=== PATIENT | male | born 1955 | race Caucasian/White ===

== ENCOUNTER → 2017-10-18 10:41 | Outpatient (CLI) | payer OTHER, SELFPAY ==
[2017-10-18 12:20] LABS: PSA,Total - Annual Screen 5.15 ng/mL (0.00-4.00)
== END ==
PROVIDERS: Visit Provider Family Medicine
DX: Z12.5 Encounter for screening for malignant neoplasm of prostate (principal)
CPT/HCPCS: 36415; 84153; G0103

== ENCOUNTER → 2018-03-06 16:43 | Outpatient (CLI) | payer OTHER, SELFPAY ==
[2018-03-06 18:06] LABS: PSA,Total- Diagnostic 5.61 ng/mL (0.0-4.0)
== END ==
PROVIDERS: Family Provider Family Medicine; PCP Family Medicine; Visit Provider Family Medicine
DX: R97.20 Elevated prostate specific antigen [PSA] (principal)
CPT/HCPCS: 36415; 84153

== ENCOUNTER → 2018-04-10 17:54 | Outpatient (CLI) | payer OTHER, SELFPAY ==
--- NOTE | 2018-04-10 | IMM_PTH ---
PATIENT: YOLI BARBA Jr. LOC: [facility] U#:[id number] AGE/SX: 70/M ROOM: RE04/10/[address]: Dr. Bradly Mancilla MD : 1955 BED: DIS: SPEC #: [id number] RECD: 04/12/18 14:17 STATUS: BURKE REQ #: [id number] AVELINA: 04/10/18 00:[address]: Bradly Mancilla DEPT: IMMUNOHISTOCHEMISTRY RECD BY: Meghana Segura ENTERED: 04/12/18 14:19 SP TYPE: IMMUNO OTHR DR: Dr. Too Moore MD Tissues: C - PROSTATE RIGHT D - PROSTATE LEFT F - PROSTATE LEFT Procedures: 34BE12 (add) P40 (add) 34BE12 (initial) PHYSICIAN & INSTITUTION [place] [id number] SPECIMEN INFORMATION: Tissue Source: C ? Right prostate base, D ? Left prostate apex, F ? Left prostate base Clinical Info: Elevated PSA Specimen Number: [id number] C, D, F CPT code: 57206, 97335 x5 METHODOLOGY: Deparaffinized sections of prefer/formalin-fixed tissue or PAP/DQ stained slides are incubated with monoclonal/polyclonal antibodies/oligonucleotide probes. Localization is made via biotin free immunoperoxidase method. Appropriate controls are performed and reacted as expected. Results on target cell population are indicated in the following table: RESULTS: ANTIBODY / CLONE RESULT Block C P40 (BC28) positive 34BE12 (34BE12) positive Block D P40 (BC28) positive 34BE12 (34BE12) positive Block F P40 (BC28) positive 34BE12 (34BE12) positive These tests were developed and their performance characteristics determined by [facility]. They may not have been cleared or approved by the U.S. Food and Drug Administration. The FDA has determined that such clearance or approval is not necessary. INTERPRETATION: C. Right prostate, base, core biopsy: Benign prostatic tissue. D. Left prostate, apex, core biopsy: Consistent with focal high-grade prostatic intraepithelial neoplasia. F. Left prostate, base, core biopsy: Consistent with focal high-grade prostatic intraepithelial neoplasia. AM:michele 04/13/18
--- NOTE | 2018-04-10 11:00 | PROSBIL_PTH ---
PATIENT: YOLI BARBA Jr. LOC: [facility] U#:[id number] AGE/SX: 70/M ROOM: RE04/10/[address]: Dr. Bradly Mancilla MD : 1955 BED: DIS: SPEC #: [id number] RECD: 04/10/18 17:42 STATUS: BURKE RELatonia #: [id number] AVELINA: 04/10/18 11:[address]: Bradly Mancilla DEPT: SURGICAL PATHOLOGY RECD BY: Stepan Fabian ENTERED: 04/11/18 11:59 SP TYPE: PROST BX RHIANNA DR: Dr. Too Moore MD Tissues: A - PROSTATE RIGHT B - PROSTATE RIGHT C - PROSTATE RIGHT D - PROSTATE LEFT E - PROSTATE LEFT F - PROSTATE LEFT Procedures: PROSTATE BX HEADER OPERATION: Prostate biopsy PRE-OP DIAGNOSIS: Elevated PSA TISSUE SUBMITTED: A - Right apex, B - Right mid, C - Right base, D - Left apex, E - Left mid, F - Left base MICROSCOPIC DIAGNOSIS A. Right prostate, apex, core biopsy: Focal glandular atrophy and minimal chronic inflammation. B. Right prostate, mid, core biopsy: Focal glandular atrophy and minimal chronic inflammation. C. Right prostate, base, core biopsy: Benign prostatic tissue. D. Left prostate, apex, core biopsy: Focal high-grade prostatic intraepithelial neoplasia (HGPIN). E. Left prostate, mid, core biopsy: Focal glandular atrophy and minimal chronic inflammation. F. Left prostate, base, core biopsy: Focal glandular atrophy. Mild chronic inflammation. Focal high-grade prostatic intraepithelial neoplasia (HGPIN). AM:michele 04/12/18 COMMENT C, D & F - Immunohistochemistry ([id number]) supports the above diagnosis. MICROSCOPIC DESCRIPTION Slides are reviewed. GROSS DESCRIPTION A - Received is one container designated prostate, right apex. The specimen consists of two elongated fragments of light berg-white soft tissue each measuring 2 cm in length and 0.1 cm in diameter. The specimen is totally submitted in one cassette. B - Received is one container designated prostate, right mid. The specimen consists of two elongated fragments of light berg-white soft tissue each measuring 2 cm in length and 0.1 cm in diameter. The specimen is totally submitted in one cassette. C - Received is one container designated prostate, right base. The specimen consists of two elongated fragments of light berg-white soft tissue each measuring 1 cm in length and 0.1 cm in diameter. The specimen is totally submitted in one cassette. D - Received is one container designated prostate, left apex. The specimen consists of two elongated fragments of light berg-white soft tissue each measuring 1 cm in length and 0.1 cm in diameter. The specimen is totally submitted in one cassette. E - Received is one container designated prostate, left mid. The specimen consists of two elongated fragments of light berg-white soft tissue each measuring 1.5 cm in length and 0.1 cm in diameter. The specimen is totally submitted in one cassette. F - Received is one container designated prostate, left base. The specimen consists of two elongated fragments of light berg-white soft tissue each measuring 1 cm in length and 0.1 cm in diameter. The specimen is totally submitted in one cassette. / AM:michele 04/11/18 TC:3 CPT: 61399 x6
== END ==
PROVIDERS: Family Provider Family Medicine; PCP Family Medicine; Visit Provider Urology
DX: R97.20 Elevated prostate specific antigen [PSA] (principal)
CPT/HCPCS: 88305; 88341; 88342; G0416

== ENCOUNTER → 2019-05-24 14:09 | Outpatient (CLI) | payer OTHER, SELFPAY ==
[2014-04-16 20:14] VITALS: BMI 23.7
[2019-05-24 16:24] LABS: PSA,Total- Diagnostic 5.63 ng/mL (0.0-4.0)
== END ==
PROVIDERS: Family Provider Family Medicine; PCP Family Medicine; Referring Provider Urology; Visit Provider Urology
DX: R97.20 Elevated prostate specific antigen [PSA] (principal)
CPT/HCPCS: 36415; 84153

== ENCOUNTER 2019-10-24 06:56 | Day surgery (SDC) | payer OTHER, SELFPAY ==
[2019-10-24 07:22] VITALS: BP 144/92; PULSE 71; RESP 16; TEMP 36.7; O2SAT 98; BMI 26.5
[2019-10-24] MEDS: Lactated Ringers 1,000 ML 100 ML IV (07:28)
--- NOTE | 2019-10-24 07:47 | HP.PCM_ITS ---
History of Present Illness Date of Admission: 10/24/19 The patient is a 64 year old M presents for screening colonoscopy. Patient's last colonoscopy was about 8 years ago states he did have about 5 polyps at that time was recommended to come back in 5 years. Patient denies any family history of colon cancer. Patient states he has bowel movements daily denies any blood. Denies any chronic abdominal pain/nausea/vomiting/reflux. Past Medical/Surgical History - Planned Operation Planned Operative Procedure/s: COLONOSCOPY Date of Operative Procedure: 10/24/19 Permit Signed: No S.O.S: No Is This Patient Having a Total Joint: No - Previous Hospitalizations/Surgeries HX Hospitalizations: No HX of Surgeries: COLONOSCOPY Any Problems With Anesthesia: No You/Your Family Experience Fever (Hyperthermia) With Anes: No Cholinesterase deficiency: No - Cardiovascular Hx Chest Pain within Last 2 months: No Hx of Irregular Heartbeat and/or Afib: No Hx Heart Attack: No Hx Congestive Heart Failure: No Hx Rheumatic Fever: No Hx Hypertension: No Hx Internal Defibrillator: No Hx Pacemaker: No Hx Cardiac Catheterization: No Hx Cardiac Surgery/Stents/Etc.: No Hx Stress Test: No HX Edema: No Hx Pain in Legs when Walking/Leg Cramps: Yes - Respiratory Chronic Cough: No HX of Shortness of Breath: No Hoarseness: No Hx Chronic Obstructive Pulmonary Disease (COPD): No Hx Asthma: No Hx Emphysema: No Hx Sleep Apnea: No Hx Oxygen Use at Home: No Hx Respiratory Tract Infection/Cold (presently): No Do You Snore Loudly (louder than talking or can be heard): Yes Do You Often Feel Tired/ Fatigued/ Sleepy Dring Daytime?: No Has Anyone Observed You Stop Breathing During Sleep?: No Result (for STOP score): Negative Hx Smoking: No Smoking Status: Never smoker - Gastrointestinal Hx Gastroesophageal Reflux: Yes Controlled With Meds: No Hx Gastrointestinal Disorders: No Hx Gastrointestinal Bleed: No Hx Ulcer: No Hx Hiatal Hernia: No Difficulty Chewing/Swallowing: No Recent Onset of Swallowing Problems: No Special diet followed at home: No Hx Unplanned Weight Loss of 20#: No HX Unplanned Weight Gain of 20#: No - Neurological Hx Seizures: No HX Syncope/Blackout Spells/Unconsciousness: No Hx CVA/Stroke: No Hx Transient Ischemic Attacks (TIA): No Hx Multiple Sclerosis: No Hx Parkinson's Disease: No Hx Head/Neck Injury: No Hx Headaches: No Hx Back Injury/Pain: No Recent Onset of Speech Difficulty: No Restless Legs: No Does patient have nerve stimulator: No - Blood Disorder Hx Leukemia: No Bleeding Tendencies: No Hx Deep Vein Thrombosis: No Hx High Cholesterol: No Blood Transmitted Disease: No Hx Hepatitis: No Hx Cirrhosis: No Hx Anemia: No Hx Blood Disorders: No - Genitourinary Hx Renal Disease: No - Musculoskeletal Hx Arthritis: No Hx Rheumatoid Arthritis: No Hx Gout: No Recent Onset of an Orthopedic Problem: No - Endocrine Hx Diabetes: No Thyroid Disease: No Hx Steroid Therapy: No - Psycho/Social Hx Substance Use: No Hx Alcohol Use: Yes - SOCIAL Hx Anxiety: No Hx Depression: No Mental Illness: No Hx Dementia: No - Miscellaneous Hx Cancer: No Recent Exposure to Contagious Disease: No Active MRSA: No Hx of C-Diff: No Any Loose Teeth: No Allergies No Known Allergies Allergy (Verified 10/22/19 10:44) - Discharge Is Pt Admitted From a Senior Living, or a Custodial: No Who Could Help: After D/C, Where Do you Plan to Go: Return Home - From the PAT History Number of Risk Factors: 2 - Physical Exam Vitals/I&O's: Vital Signs Temp Pulse Resp BP Pulse Ox 98.0 F 71 16 144/92 H 98 10/24/19 07:22 10/24/19 07:22 10/24/19 07:22 10/24/19 07:22 10/24/19 07:22 Oxygen Delivery Method Room Air Weight: 206 lb 9.17 oz Body Mass Index (BMI) 26.5 General: Alert, Oriented x3, Cooperative, No apparent distress HEENT: Atraumatic Lungs: Normal air movement Cardiovascular: Regular rate Abdomen: Soft, Non Tender, Non-Distended Extremities: No clubbing, No cyanosis, No edema Neurological: Cranial nerves II-XII grossly intact Psych/Mental Status: Normal Affect Current Medications Lactated Ringer's () 1,000 mls @ 100 mls/hr IV .Q10H LANEY Last Admin: 10/24/19 07:28 Dose: 100 mls/hr Documented by: Assessment/Plan 64-year-old male with history of colon polyps Surgery Risks - Colonoscopy I discussed with the patient the risks of the procedure: Yes Risks Include but are not Limited To: Risks include but are not limited to: Bleeding, perforation requiring further surgery, inability to complete colonoscopy requiring barium enema. Patient no further questions this time.
--- NOTE | 2019-10-24 08:00 | COLBX_PTH ---
PATIENT: YOLI BARBA Jr. LOC: [facility] U#:[id number] AGE/SX: 64/M ROOM: RE10/24/[address]: Dr. Salma Diaz MD : 1955 BED: DIS: 10/24/2019 SPEC #: [id number] RECD: 10/24/19 10:41 STATUS: BURKE RELatonia #: [id number] AVELINA: 10/24/19 08:[address]: Salma Diaz DEPT: SURGICAL PATHOLOGY RECD BY: Stepan Fabian ENTERED: 10/24/19 12:07 SP TYPE: COLON BX OTHR DR: Dr. Too Swann MD Tissues: A - Transverse colon B - Rectum, NOS Procedures: Surgery Specimen Level IV HEADER OPERATION: Colonoscopy - open access (MAC) PRE-OP DIAGNOSIS: Screening colonoscopy TISSUE SUBMITTED: A - Transverse colon biopsy, B - Rectal biopsy MICROSCOPIC DIAGNOSIS A. Transverse colon, biopsy: A fragment of colonic mucosa, no pathologic diagnosis. B. Rectal biopsy: Fragments of hyperplastic polyp. AM:michele 10/25/19 MICROSCOPIC DESCRIPTION Slides are reviewed. GROSS DESCRIPTION A - Received in fixative is one container labeled with the patient's name and designated transverse colon biopsy. The specimen consists of one irregular fragment of light berg soft tissue that measures 0.3 x 0.3 x 0.1 cm. The specimen is totally submitted in one cassette. B - Received in fixative is one container labeled with the patient's name and designated rectal biopsy. The specimen consists of multiple irregular fragments of light berg soft tissue that in aggregate measure 0.8 x 0.5 x 0.1 cm. The specimen is totally submitted in one cassette. / SJ:michele 10/24/19 TC:1 CPT: 34323 x2
[2019-10-24 08:42] VITALS: BP 126/82; BP 144/92; PULSE 72; RESP 16; TEMP 36.2; O2SAT 99
[2019-10-24 08:45] VITALS: BP 126/82; BP 144/92; PULSE 70; RESP 16; O2SAT 95
--- NOTE | 2019-10-24 08:46 | OP.COLON_ITS ---
Patient Name: Med Mcneill Procedure Date: 10/24/2019 7:41 AM Date of : 1955 Age: 64 Procedure: Colonoscopy Indications: High risk colon cancer surveillance: Personal history of colonic polyps Providers: Salma Diaz MD Referring MD: Too Swann Md Medicines: Monitored Anesthesia Care Patient Profile: This is a 64 year old male. Last Colonoscopy: 8 years ago. Complications: No immediate complications. Procedure: Pre-Anesthesia Assessment: - Prior to the procedure, a History and Physical was performed, and patient medications and allergies were reviewed. The patient's tolerance of previous anesthesia was also reviewed. The risks and benefits of the procedure and the sedation options and risks were discussed with the patient. All questions were answered, and informed consent was obtained. Prior Anticoagulants: The patient has taken no previous anticoagulant or antiplatelet agents. ASA Grade Assessment: I - A normal, healthy patient. After reviewing the risks and benefits, the patient was deemed in satisfactory condition to undergo the procedure. After I obtained informed consent, the scope was passed under direct vision. Throughout the procedure, the patient's blood pressure, pulse, and oxygen saturations were monitored continuously. The Colonoscope was introduced through the anus and advanced to the cecum, identified by the appendiceal orifice, ileocecal valve and palpation. The colonoscopy was somewhat difficult due to a tortuous colon. Successful completion of the procedure was aided by applying abdominal pressure. The patient tolerated the procedure well. The quality of the bowel preparation was good. Scope In: 8:00:53 AM Scope Withdrawal Time 0 hours 20 minutes 40 seconds Scope Out: 8:36:58 AM Total Procedure Duration Time 0 hours 36 minutes 5 seconds Findings: The perianal and digital rectal examinations were normal. A few small-mouthed diverticula were found in the sigmoid colon. Three sessile polyps were found in the rectum and transverse colon. The polyps were less than 5 mm in size. These polyps were removed with a cold biopsy forceps. Resection and retrieval were complete. The exam was otherwise without abnormality on direct and retroflexion views. Impression: - Diverticulosis in the sigmoid colon. - Three less than 5 mm polyps in the rectum and in the transverse colon, removed with a cold biopsy forceps. Resected and retrieved. - The examination was otherwise normal on direct and retroflexion views. Recommendation: - Await pathology results. - Repeat colonoscopy in 5 years for surveillance based on pathology results. - Continue present medications. Procedure Code(s): --- Professional --- 15606, PT, Colonoscopy, flexible; with biopsy, single or multiple Diagnosis Code(s): --- Professional --- Z86.010, Personal history of colonic polyps K62.1, Rectal polyp D12.3, Benign neoplasm of transverse colon (hepatic flexure or splenic flexure) K57.30, Diverticulosis of large intestine without perforation or abscess without bleeding CPT copyright 2017 [employer]. All rights reserved. The codes documented in this report are preliminary and upon shipping and receiving review may be revised to meet current compliance requirements. MD Salma Crawford MD 10/24/2019 8:46:15 AM This report has been signed electronically. Number of Addenda: 0 Note Initiated On: 10/24/2019 7:41 AM
--- NOTE | 2019-10-24 08:46 | OP.CCLET_ITS ---
10/24/2019 Too Swann Md Re : Colonoscopy procedure for Med Mcneill [place] This procedure was performed on Thursday, October 24, 2019. My impressions and recommendations are as follows: Impressions : - Diverticulosis in the sigmoid colon. - Three less than 5 mm polyps in the rectum and in the transverse colon, removed with a cold biopsy forceps. Resected and retrieved. - The examination was otherwise normal on direct and retroflexion views. Recommendations : - Await pathology results. - Repeat colonoscopy in 5 years for surveillance based on pathology results. - Continue present medications. My findings are described in the full procedure note, which is enclosed. If I can be of further assistance, please feel free to contact me at Doctor phone number(s): , Work: . Sincerely, MD Salma Crawford MD 10/24/2019 8:46:15 AM This report has been signed electronically.
[2019-10-24 08:50] VITALS: BP 140/87; BP 144/92; PULSE 68; RESP 16; O2SAT 96
[2019-10-24 08:57] VITALS: BP 141/87; BP 144/92; PULSE 67; RESP 16; TEMP 36.3; O2SAT 98
[2019-10-24 09:09] VITALS: BP 144/92
== END 2019-10-24 09:22 | disposition home or self-care (01) ==
LOC: EN 06:56 → AC 06:57
PROVIDERS: PCP Family Medicine; Referring Provider Family Medicine; Visit Provider Surgery
PROC: 0DJD8ZZ Inspection of Lower Intestinal Tract, Via Natural or Artificial Opening Endoscopic (ICD-10-PCS; CPT 45378; principal; 2019-10-24 07:55)
DX: Z12.11 Encounter for screening for malignant neoplasm of colon (principal); Z86.010 Personal history of colon polyps; K62.1 Rectal polyp; K57.30 Diverticulosis of large intestine without perforation or abscess without bleeding
CPT/HCPCS: 45380; 88305; J7120; J2405

== ENCOUNTER → 2020-03-24 09:46 | Outpatient (CLI) | payer OTHER, SELFPAY ==
[2020-03-24 13:27] LABS: Anion Gap 8 (5-15); BUN 25 mg/dL (7-18); Calcium,Total 8.8 mg/dL (8.5-10.1); Chloride 104 mmol/L (98-107); Cholesterol 158 mg/dL (200); Creatinine, Serum 0.93 mg/dL (0.70-1.30); EST Glomerular Filtration Rate 87 mL/min (>60); Est Glom Filt Rate - Afr Amer 105 mL/min (>60); Glucose 92 mg/dL (74-106); High Density Lipoprotein 35 mg/dL; Potassium 3.7 mmol/L (3.5-5.1); Sodium Level 138 mmol/L (136-145); Triglycerides 90 mg/dL; Very Low Density Lipoprotein 18 mg/dL (5-40)
== END ==
PROVIDERS: PCP Family Medicine; Referring Provider Family Medicine; Visit Provider Family Medicine
DX: Z13.1 Encounter for screening for diabetes mellitus (principal); Z13.220 Encounter for screening for lipoid disorders
CPT/HCPCS: 36415; 80048; 80061

== ENCOUNTER → 2020-08-26 09:58 | Outpatient (CLI) | payer OTHER, SELFPAY ==
[2020-08-26 11:44] LABS: PSA,Total- Diagnostic 8.11 ng/mL (0.0-4.0)
== END ==
PROVIDERS: PCP Family Medicine; Referring Provider Urology; Visit Provider Urology
DX: R97.20 Elevated prostate specific antigen [PSA] (principal)
CPT/HCPCS: 36415; 84153

== ENCOUNTER → 2020-12-15 10:41 | Outpatient (CLI) | payer OTHER, SELFPAY ==
[2020-12-15 11:32] LABS: PSA,Total- Diagnostic 6.03 ng/mL (0.0-4.0)
== END ==
PROVIDERS: PCP Family Medicine; Referring Provider Urology; Visit Provider Urology
DX: R97.20 Elevated prostate specific antigen [PSA] (principal)
CPT/HCPCS: 36415; 84153

== ENCOUNTER → 2021-04-14 09:22 | Outpatient (CLI) | payer OTHER, SELFPAY ==
[2021-04-14 10:09] LABS: Absolute Lymphocyte Count 1.58 X10^3/uL (0.83-4.51); Basophil# 0.03 X10^3/uL; Basophil% 0.6 % (0-1); Eosinophil# 0.09 X10^3/uL; Eosinophils% 1.7 % (0-5); Hematocrit 42.9 % (40-54); Hemoglobin 14.4 g/dL (13.0-16.5); Lymphocyte # 1.58 X10^3/ul (0.83-4.51); Lymphocyte % 30.7 % (19-41); Mean Corp Hgb Conc 33.6 g/dL (32-36); Mean Corpuscular Hgb 29.6 pg (27.0-32.0); Mean Corpuscular Volume 88.3 fL (80-94); Mean Platelet Vol. 9.1 fl (6.2-12.0); Monocyte# 0.46 X10^3/uL; Monocyte% 8.9 % (0-10); NRBC Flagged by Analyzer 0 % (0-5); Neutrophil # 2.97 X10^3/uL (2.7-7.7); Neutrophil % 57.7 % (47-70); Platelet Count 209 K/mm3 (150-450); RBC Distribution Width CV 14.1 % (11.6-14.6); Red Blood Count 4.86 M/mm3 (4.6-6.2); White Blood Count 5.2 K/mm3 (4.4-11.0)
[2021-04-14 10:34] LABS: ALB/GLOB Ratio 1.1 RATIO (0.9-2.4); AST(SGOT) 26 U/L (15-37); Alanine Aminotransfer ALT/SGPT 42 U/L (16-61); Albumin, Serum 3.7 g/dL (3.2-5.0); Alkaline Phosphatase 101 U/L (45-117); Anion Gap 5 (5-15); BUN 22 mg/dL (7-18); BUN/Creat Ratio 29.4 RATIO (10-20); Calcium,Total 8.6 mg/dL (8.5-10.1); Chloride 106 mmol/L (98-107); Cholesterol 162 mg/dL (200); Creatinine, Serum 0.75 mg/dL (0.70-1.30); EST Glomerular Filtration Rate 110 mL/min (>60); Est Glom Filt Rate - Afr Amer 134 mL/min (>60); Globulin 3.3 g/dL (2.2-4.2); Glucose 94 mg/dL (74-106); High Density Lipoprotein 35 mg/dL; Potassium 3.8 mmol/L (3.5-5.1); Sodium Level 138 mmol/L (136-145); Triglycerides 152 mg/dL; Very Low Density Lipoprotein 30 mg/dL (5-40)
== END ==
PROVIDERS: PCP Family Medicine; Referring Provider Family Medicine; Visit Provider Family Medicine
DX: E78.00 Pure hypercholesterolemia, unspecified (principal)
CPT/HCPCS: 36415; 80053; 80061; 85025

== ENCOUNTER → 2021-06-15 15:50 | Outpatient (CLI) | payer OTHER, SELFPAY ==
--- NOTE | 2021-06-15 13:15 | LES_PTH ---
PATIENT: YOLI BARBA Jr. LOC: [facility] U#:[id number] AGE/SX: 70/M ROOM: RE06/15/[address]: Dr. Salma Diaz MD : 1955 BED: DIS: SPEC #: [id number] RECD: 06/15/21 15:30 STATUS: BURKE DESMOND #: [id number] AVELINA: 06/15/21 13:[address]: Salma Diaz DEPT: SURGICAL PATHOLOGY RECD BY: Claire Rowan ENTERED: 06/16/21 08:18 SP TYPE: Lesion OTHR DR: Dr. Too Swann MD Tissues: A - Skin of back, NOS B - Skin of chest C - Skin of arm Procedures: Surgery Specimen Level III Surgery Specimen Level IV HEADER OPERATION: Excision left chest, left forearm and back lesions PRE-OP DIAGNOSIS: Back lipoma, other skin lesions TISSUE SUBMITTED: A - Subcutaneous mass left back, B - Skin lesion anterior chest, long stitch - lateral, short stitch - superior, C - Skin lesion left forearm, long stitch - lateral, short stitch - superior MICROSCOPIC DIAGNOSIS A. Subcutaneous mass left back, excisional biopsy: Mature adipose tissue consistent with lipoma. B. 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 Mild actinic keratosis. Lichenoid dermal chronic inflammation adjacent to the tumor. C. Skin lesion left forearm, excisional biopsy: Basal cell carcinoma, completely excised. Actinic keratosis and solar elastosis. SJ:michele 06/17/2021 MICROSCOPIC DESCRIPTION Slides are reviewed. GROSS DESCRIPTION A - Received in fixative is one container labeled with the patient's name and designated subcutaneous mass left back. The specimen consists of an irregular, partially disrupted yellow adipose tissue mass measuring 8 x 8 x 3 cm. A small piece of adipose tissue is also noted measuring 2.5 x 1.5 x 1 cm. Sections reveal yellow adipose cut surfaces without area of hemorrhage, necrosis or cystic degeneration. Bag Sewer sections are submitted in four cassettes. B - Received in fixative is one container labeled with the patient's name and designated skin lesion anterior chest. The specimen consists of a berg-white skin ellipse measuring 1 x 0.3 cm and up to 0.2 cm in thickness. The specimen is oriented by two sutures, long stitch - lateral, short stitch - superior. The specimen is inked as follows: superior margin - blue, inferior margin - green, lateral tip - yellow and medial tip - black. The specimen is serially sectioned and submitted entirely in one cassette. C - Received in fixative is one container labeled with the patient's name and designated skin lesion left forearm. The specimen consists of a berg-white skin ellipse measuring 1.5 x 0.7 cm and up to 0.2 cm in thickness. The specimen is oriented as follows: long stitch - lateral, short stitch - superior. The specimen is inked as follows: superior tip - blue, inferior tip - green, lateral margin - black and medial margin - yellow. The specimen is serially sectioned and submitted entirely in one cassette. / SJ:rg 06/16/21 TC:0 CPT: 12089 x2, 94891
== END ==
PROVIDERS: PCP Family Medicine; Referring Provider Surgery; Visit Provider Surgery
DX: L98.9 Disorder of the skin and subcutaneous tissue, unspecified (principal); D17.79 Benign lipomatous neoplasm of other sites
CPT/HCPCS: 88304; 88305

== ENCOUNTER 2021-06-24 05:56 | Day surgery (SDC) | payer OTHER, SELFPAY ==
[2021-06-24 06:17] VITALS: BP 145/65; PULSE 79; RESP 16; TEMP 36.6; O2SAT 99; BMI 26.6
[2021-06-24] MEDS: Lactated Ringers 1,000 ML 15 ML IV (06:25)
--- NOTE | 2021-06-24 08:00 | TISS_PTH ---
PATIENT: YOLI BARBA Jr. LOC: [facility] [place] U[place][id number] AGE/SX: 66/M ROOM: RE06/24/[address]: Dr. Bradly Mancilla MD : 1955 BED: DIS: 06/24/2021 SPEC #: [id number] RECD: 06/24/21 10:12 STATUS: BURKE [place] #: [id number] AVELINA: 06/24/21 08:[address]: Bradly Mancilla DEPT: SURGICAL PATHOLOGY RECD BY: Almaz Mc ENTERED: 06/24/21 13:31 SP TYPE: Tissue Bx RHIANNA DR: Dr. Too Swann MD Tissues: TISSUE SURGICALLY REMOVED Procedures: Surgery Specimen Level IV HEADER OPERATION: Excision penile condyloma PRE-OP DIAGNOSIS: Condyloma latum TISSUE SUBMITTED: Penile condyloma MICROSCOPIC DIAGNOSIS Penile lesion, excisional biopsy: Consistent with seborrheic keratosis. SJ:michele 06/25/2021 MICROSCOPIC DESCRIPTION Slides are reviewed. GROSS DESCRIPTION Received in fixative is one container labeled with the patient's name and designated penile condyloma. The specimen consists of a piece of berg-brown skin measuring 1.7 x 0.7 cm and up to 0.3 cm in thickness. The specimen is inked, serially sectioned and submitted entirely in one cassette. / CYLDE:michele 06/24/21 TC:1 CPT: 21329
[2021-06-24] MEDS: Cefazolin 2 GM in 0.9% Normal Saline 100 ML IV (08:20)
--- NOTE | 2021-06-24 08:21 | PCM.HP.STD ---
HPI - General HPI Narrative YOLI BARBA, is a 66 M who presents for excision of penile condyloma. PFSH Medical History Alcohol use Back pain Heartburn Non-smoker Urinary retention Home Medications tamsulosin 0.4 mg PO QHS 10/22/19 [History Last Taken Unknown] Allergy/AdvReac Type Severity Reaction Status Date / Time No Known Allergies Allergy Verified 06/24/21 06:16 Family History Mother Heart disease Hypertension Breast cancer Father CHF (congestive heart failure) Sister Hypertension Parkinsons disease Surgical History History of colonoscopy (~10/2019) No pertinent past surgical history Social History Smoking Status: Never smoker Vital Signs Vital Signs Vital Signs: 06/24/21 06:17 Temperature 98 F Temperature Source Temporal Pulse Rate 79 Respiratory Rate 16 Respiratory Pattern Normal Blood Pressure 145/65 H Blood Pressure Mean 91 Blood Pressure Source Monitor Blood Pressure Position Semi-Fowlers Blood Pressure Location Right Arm Pulse Ox 99 Oxygen Delivery Method Room Air Weight Weight: 94 kg Body Mass Index (BMI) 26.6
--- NOTE | 2021-06-24 08:21 | PCM.DC ---
Discharge Instructions Diet Discharge Diet: No restrictions Activity Discharge Activity: Return to Normal Activity and May Not Drive (while taking narcotic pain medications.) Dressing / Incision Call your doctor if you observe: Fever of 101 or Higher Follow Up Care Please Follow Up With: Bradly Mancilla MD When: Call [phone] for an appointment Test Results: Test results from this visit will be discussed in further detail at your follow-up appointment, if applicable. Discharge Plan Admission Primary Reason for Your Visit: excision of penile condyloma Attending Provider: Bradly Mancilla Primary Care Provider: Too Swann Discharge Orders/Prescriptions Prescriptions: No Action tamsulosin 0.4 MG capsule 0.4 mg PO QHS RF: 0 Referrals / Follow Up: Bradly Mancilla MD [STAFF PHYSICIAN] - Too Swann MD [Primary Care Provider] - Disposition Disposition (needs filled in before D/C Order can be placed): Home, Self Care
[2021-06-24] MEDS: Lidocaine 1% (30 ml sdv) 30 ML Vial (08:30)
--- NOTE | 2021-06-24 08:41 | PCM.OPRPT ---
Report of Operation Date of Procedure: 06/24/21 Pre-Operative Diagnosis: Penile condyloma l Post-Operative Diagnosis: Same Surgery/Procedure Performed:: Surgical excision of penile condyloma Description of Surgical Findings:: 66-year-old male had a condyloma the base of the penis he wishes to have it removed he is concerned about it and the size of it is gotten larger so because of this organ to proceed with excision of a penile condyloma. It is possible this also could be a fleshy wart, Patient was taken back to the operating room after smooth induction of a MAC local he was placed upon the table the area around the common dome of the base of the penis this was the 3 o'clock position on the penis base was shaved prepped and draped in usual sterile fashion I incised infiltrated below the condyloma with lidocaine 1% without epi I then made an elliptical an elliptical incision around the condyloma and excised this from underneath and then had plenty of loose tissue and then brought it together for a nice straight closure with 2 layers 1 subcutaneous layer and then interrupted stitches on the top with chromic stitches 3-0 chromic after the closure was done look nice and clean and intact flaps and dressings were replaced patient anesthetic was versed taken back to PACU good condition. Surgeon: aster Type of Anesthesia: MAC
[2021-06-24 08:50] VITALS: BP 111/71; BP 145/65; PULSE 65; RESP 18; TEMP 36; O2SAT 96
[2021-06-24 08:55] VITALS: BP 111/71; BP 145/65; PULSE 64; RESP 16; O2SAT 96
[2021-06-24 09:00] VITALS: BP 113/73; BP 145/65; PULSE 60; RESP 16; O2SAT 95
[2021-06-24 09:07] VITALS: BP 128/81; BP 145/65; PULSE 62; RESP 16; TEMP 35.7; O2SAT 95
[2021-06-24 09:52] VITALS: BP 145/65
== END 2021-06-24 09:53 | disposition home or self-care (01) ==
LOC: SDC 05:58 → AC 05:58
PROVIDERS: PCP Family Medicine; Referring Provider Urology; Visit Provider Urology
PROC: (CPT 54060; principal; 2021-06-24 07:45)
DX: A63.0 Anogenital (venereal) warts (principal); R33.9 Retention of urine, unspecified; Z79.899 Other long term (current) drug therapy
CPT/HCPCS: 00920; 54060; 88305; J7120

== ENCOUNTER → 2021-07-02 15:14 | Outpatient (CLI) | payer OTHER, SELFPAY ==
--- NOTE | 2021-07-02 | IMM_PTH ---
PATIENT: YOLI BARBA Jr. LOC: [facility] U#:[id number] AGE/SX: 70/M ROOM: RE07/02/[address]: Dr. Salma Diaz MD : 1955 BED: DIS: SPEC #: [id number] RECD: 07/06/21 14:07 STATUS: BURKE RELatonia #: [id number] AVELINA: 07/02/21 00:[address]: Salma Diaz DEPT: IMMUNOHISTOCHEMISTRY RECD BY: Meghana Segura ENTERED: 07/06/21 14:11 SP TYPE: IMMUNO OTHR DR: Dr. Too Swann MD Tissues: Skin of chest Procedures: MART1 (add) S100 (initial) PHYSICIAN & INSTITUTION [place] [id number] SPECIMEN INFORMATION: Tissue Source: Skin lesion of chest Clinical Info: Mole on chest Specimen Number: [id number] CPT code: 43117, 84656 METHODOLOGY: Deparaffinized sections of prefer/formalin-fixed tissue or PAP/DQ stained slides are incubated with monoclonal/polyclonal antibodies/oligonucleotide probes. Localization is made via biotin free immunoperoxidase method. Appropriate controls are performed and reacted as expected. Results on target cell population are indicated in the following table: RESULTS: ANTIBODY / CLONE RESULT S-100 (4C4.9) positive MART-1 (A-103) positive These tests were developed and their performance characteristics determined by [facility]. They may not have been cleared or approved by the U.S. Food and Drug Administration. The FDA has determined that such clearance or approval is not necessary. The above immunohistochemical/dualISH markers are ordered and reviewed by the Pathologist. INTERPRETATION: Skin lesion of chest, excisional biopsy: Compound nevus. CLYDE:michele 07/07/2021 Case has been reviewed in consultation with Dr. Payne who concurs with the above diagnosis. IDC:AM
--- NOTE | 2021-07-02 13:15 | LES_PTH ---
PATIENT: YOLI BARBA Jr. LOC: [facility] U#:[id number] AGE/SX: 70/M ROOM: RE07/02/[address]: Dr. Salma Diaz MD : 1955 BED: DIS: SPEC #: [id number] RECD: 07/02/21 14:43 STATUS: BURKE DESMOND #: [id number] AVELINA: 07/02/21 13:[address]: Salma Diaz DEPT: SURGICAL PATHOLOGY RECD BY: Claire Rowan ENTERED: 07/03/21 10:53 SP TYPE: Lesion OTHR DR: Dr. Too Swann MD Tissues: Skin of chest Procedures: Surgery Specimen Level IV HEADER OPERATION: Excision skin lesion on chest PRE-OP DIAGNOSIS: Mole on chest TISSUE SUBMITTED: Skin lesion chest, long suture ? lateral, short suture ? superior MICROSCOPIC DIAGNOSIS Skin lesion chest, excisional biopsy: A minute compound nevus, completely excised (0.2 cm in greatest dimension). Focal seborrheic keratosis. Dermal fibrosis consistent with scar. Actinic keratosis. Negative for malignancy. SJ:michele 07/06/2021 COMMENT Immunohistochemistry ([id number]) supports the above diagnosis. Please make reference to previous specimen ([id number]) skin lesion anterior chest, excisional biopsy with diagnosis of ?squamous cell carcinoma with focal area suspicious for minimally invasive squamous cell carcinoma, completely excised.? Case has been reviewed in consultation with Dr. Payne who concurs with the above diagnosis. IDC:AM MICROSCOPIC DESCRIPTION Slides are reviewed. GROSS DESCRIPTION Received in fixative is one container labeled with the patient's name and designated skin lesion anterior chest. The specimen consists of an ellipse of berg, excised skin. The specimen is oriented and measures 2.2 x 1.2 x 0.4 cm. The specimen is differentially inked as follows: superior ? black, inferior ? blue, medial ? red and lateral ? yellow. The specimen is serially sectioned and totally submitted in one cassette. / AM:michele 07/03/21 TC:1 CPT: 03231
== END ==
PROVIDERS: PCP Family Medicine; Referring Provider Surgery; Visit Provider Surgery
DX: L98.9 Disorder of the skin and subcutaneous tissue, unspecified (principal)
CPT/HCPCS: 88305; 88341; 88342

== ENCOUNTER → 2021-12-30 | Outpatient (CLI) | payer MEDICARE, SELFPAY | END | disposition home or self-care (01) | PROVIDERS: PCP Family Medicine; Visit Provider Urology | DX: R97.20 Elevated prostate specific antigen [PSA] (principal) | CPT/HCPCS: 36415; 84153 ==

== ENCOUNTER 2022-07-29 05:57 | Day surgery (SDC) | payer MEDICARE, OTHER, SELFPAY ==
--- NOTE | 2022-07-23 08:27 | EKG12_ITS ---
Test Reason : PRE OP Blood Pressure : / mmHG Vent. Rate : 059 BPM Atrial Rate : 059 BPM P-R Int : 218 ms QRS Dur : 114 ms QT Int : 442 ms P-R-T Axes : 068 069 059 degrees QTc Int : 437 ms Sinus bradycardia with 1st degree A-V block Otherwise normal ECG Confirmed by MADINA QUEZADA, TED ([id number]), scientific editor REGGIE MOSER ([id number]) on 07/27/2022 10:57:20 AM Referred By: Mihir Gregory Confirmed By:REY PAINTER MD
[2022-07-29] VITALS (7 sets, daily range): BP systolic 145–170; BP diastolic 77–95; PULSE 56–98; RESP 16; TEMP 36.2–36.9; O2SAT 92–99; BMI 25.7
[2022-07-29] MEDS: Lactated Ringers 1,000 ML 15 ML IV ×2 (06:49→08:13)
--- NOTE | 2022-07-29 06:52 | HP.PCM_ITS ---
History and Physical Date of Admission: 07/29/22 Medical History? Alcohol use Back pain Heartburn Non-smoker Urinary retention Surgical History? History of colonoscopy (~10/2019) Hx of basal cell carcinoma excision Hx of squamous cell carcinoma excision No pertinent past surgical history Family History? Mother Heart disease Hypertension Breast cancerFather CHF (congestive heart failure)Sister Hypertension Parkinsons disease Social History? Smoking Status:? Never smoker HPI HPI HPI: Patient is a 67-year-old male here with left inguinal hernia.? He is here for scheduling of his surgery.? He reports that his hernia has gotten worse since seeing me last.? He reports that sometimes he hears bowel sounds coming from his hernia.? He says it does spontaneously reduce with lying down. ROS General General: No weight change, appetite, fatigue, colon cancer, breast cancer or weakness HEENT HEENT: No difficulty swallowing, eye injury, eye surgery, swollen glands or hoarseness Endo Endocrine: No thyroid disease, diabetes mellitus, thyroid cancer, Hair loss, heat intolerance or cold intolerance Musc Musculoskeletal: No back problems, arthritis, rheumatoid arthritis, gout or joint pain Cardio Cardiovascular: No murmur, pacemaker, heart disease, atrial fibrillation, high blood pressure, heart attack, heart stent, palpitations, shortness of breat with exertion or chest pain Psych Psychiatric: No depression, anxiety or hearing voices Resp Respiratory: No shortness of breath, No sleep apnea, No cough, No COPD, No asthma, No emphysema and No wheezing Gastro Gastrointestinal: No abdominal pain, No nausea or vomiting, No diarrhea, No constipation, No blood in stool, No acid reflux, No hemorrhoids, No ulcers, No gallbladder problem and No black,tarry stools Markus Hematologic: No blood thinners, No blood disorders, No bleeding, No anemia and No blood clots Neuro Neurologic: No weakness Exam Const General: cooperative Orientation: alert and oriented x3 HENMT Head: normal to inspection Neck Neck: normal visual inspection and full ROM Chest Chest palpation & inspection: normal inspection of the chest Resp Effort & Inspection: normal respiratory effort Auscultation: clear to auscultation bilaterally Cardio Rate: regular rate Rhythm: regular rhythm GI Inspection: non-distended Palpation: soft, hernia indirect inguinal on the left and nontender Skin General: no rashes or lesions noted Neuro General: patient alert and patient oriented x3 Extrem General: full ROM Psych Appearance: grossly normal Mental Status: mental status grossly normal Assessment and Plan Assessment and Plan (1) Left inguinal hernia: ?Status:?Acute ?Plan: Patient has a left inguinal hernia likely containing bowel.? I once again discussed robotic assisted laparoscopic approach with him.? I discussed fixing the contralateral side if there is a hernia present he would like this repaired if there is a hernia there.? I discussed that hernia repair in detail along with the risk such as bleeding, infection, injury to other organs like the bowel, bladder, spermatic cord.? Patient understands the risks and is willing to proceed. Mihir Gregory MD Pager: [facility] [address] [place] [address], [address] [place] [address] Office: I have seen and examined the patient and reviewed the H&P. There are no changes
[2022-07-29] MEDS: Cefazolin 2 GM in 0.9% Normal Saline 100 ML IV (07:25)
[2022-07-29] MEDS: Bupivacaine Mpf 0.5% 30 ML VIAL (08:45)
--- NOTE | 2022-07-29 09:14 | PCM.OPRPT ---
Report of Operation Date of Procedure: 07/29/22 Pre-Operative Diagnosis: Left inguinal hernia Post-Operative Diagnosis: Same Surgery/Procedure Performed:: Robotic assisted laparoscopic left inguinal hernia repair with mesh Description of Procedure: Patient was brought back to the operating room and general anesthesia was induced. The abdomen was prepped and draped in usual sterile fashion. An incision was made superior the umbilicus and deepened to the fascia which was grasped and elevated and a Veress needle was placed into the abdomen and a drop test was performed. The abdomen was then insufflated 15 mmHg. Next the Veress needle was removed and a port was placed. The abdomen was inspected for injuries from entry and there were none. Next the patient was placed in Trendelenburg position and the groins were inspected. The patient had a left indirect inguinal hernia but nothing on the right. Next and there direct visualization an 8 mm port was placed in the right and left abdominal sidewall and the robot was docked. The peritoneum was incised in the left lower quadrant and dissected inferiorly until the hernia sac was encountered. The hernia was able to be reduced as well as a small lipoma. There was an area of peritoneum tightly adherent to the epigastric vessels and so this was left on the epigastric Bilivist vessels and the peritoneum was incised around it. After total dissection a 12 x 15 cm ProGrip mesh was placed and unfolded in the left groin completely covering the hernia defect. The peritoneum was reapproximated using a running 3-0V lock suture completely covering the mesh. The small defect that was made was also closed using a running V-Loc suture. The peritoneum completely cover the mesh at the end of the procedure with no defects. Next the robot was undocked and the ports were removed and the air was allowed to desufflate from the abdomen. The skin was injected with local anesthetic and closed with interrupted 4-0 Monocryl suture. Steri-Strips and bandages were applied. Scrotum was checked at the end the case and contain both testicles. Patient was taken to PACU in stable condition. Grafts/Implants Used: ProGrip mesh in the left groin Admit VTE Documentation VTE Mechan Device Prophylaxis: SCD's
--- NOTE | 2022-07-29 09:17 | DCINST_ITS ---
Discharge Instructions Procedure Hernia Diet Discharge Diet: Light diet - advance as tolerated Activity Discharge Activity: May Not Drive (for 2-3 days or while taking narcotic pain meds.) and May Shower (with the bandage in place 1-2 days after surgery.) Lifting Restrictions: 20 pounds for 4 weeks. Additional Activity Instructions:: Climbing stairs is fine, walking is encouraged. Sitting in bed may be uncomfortable. Sitting up using your lateral muscles (sitting up sideways) is usually more comfortable. Do not drive, work heavy equipment of sign legal documents for 24 hours. If your hernia repair was an inguinal repair, you may have scrotal swelling, an ice pack and/or athletic support can provide more comfort. Pain medications may cause nausea, you should typically eat light foods as you take your pain medications. Pain medications may also cause constipation. If you have difficulty with this, discuss with your doctor. Dressing / Incision Call your doctor if your incision/area has: Continuous Slow Oozing, Sudden Increased Bleeding, Increased Pain/ Swelling, Increased Redness and Foul Smelling Discharge Call your doctor if you observe: Fever of 101 or Higher Suture Line Care: Avoid Pulling/Pushing and Avoid Pinching/Bending Remove Dressing in: 2 days (Remove clear bandages in 2 days, remove Steri-Strips in 7 to 10 days.) Cleanse incision/area with: Soap & Water Follow Up Care Please Follow Up With: Mihir Gregory MD When: Please call to schedule 2 week follow up appointment. [phone] Test Results: Test results from this visit will be discussed in further detail at your follow- up appointment, if applicable. Discharge Plan Admission Attending Provider: Mihir Gregory Primary Care Provider: Joann Curran Discharge Orders/Prescriptions Prescriptions: New oxycodone 5 mg tablet 5 - 10 mg PO Q6H PRN (Reason: pain) 5 Days Qty: 15 0RF No Action tamsulosin 0.4 MG capsule 0.4 mg PO QHS Referrals / Follow Up: Joann Curran DO [Primary Care Provider] - Disposition Disposition (needs filled in before D/C Order can be placed): Home, Self Care
[2022-07-29] MEDS: Tamsulosin HCl 0.4 MG Capsule 0.8 MG PO (14:48)
== END 2022-07-29 15:11 | disposition home or self-care (01) ==
LOC: SDC 05:57 → AC 05:57
PROVIDERS: PCP Family Medicine; Referring Provider Surgery; Visit Provider Surgery
PROC: 0YQ64ZZ Repair Left Inguinal Region, Percutaneous Endoscopic Approach (ICD-10-PCS; CPT 49650; principal; 2022-07-29 07:10)
DX: K40.90 Unilateral inguinal hernia, without obstruction or gangrene, not specified as recurrent (principal); D17.1 Benign lipomatous neoplasm of skin and subcutaneous tissue of trunk; R33.9 Retention of urine, unspecified; N40.0 Benign prostatic hyperplasia without lower urinary tract symptoms; Z79.899 Other long term (current) drug therapy
CPT/HCPCS: 49650; S2900; 00840; 51702; 93005; 99283; J7120; J2405

== ENCOUNTER 2022-07-29 17:31 | Emergency (ER) | payer MEDICARE, OTHER, SELFPAY ==
[2022-07-29 17:32] VITALS: BP 176/99; PULSE 100; RESP 15; TEMP 36.6; O2SAT 99; BMI 25.0
--- NOTE | 2022-07-29 18:52 | EDS_ITS ---
HPI History of Present Illness Chief Complaint: Complaint Detail of Chief Complaint: Urinary retention post hernia repair surgery today. Informant: patient Pain Onset: Today Context: Gradual Onset Timing: Continuous Current Severity: Mild Maximum Severity: Mild Narrative Narrative: Six 7-year-old man no prior history of urinary retention. Today laparoscopic hernia repair surgery done by Dr. Mihir granados. After the surgery was unable to urinate the straight cath. He still been unable to urinate and returns with suprapubic discomfort. Prior to the surgery he was having no urinary symptoms other than frequency. But has had no recent dysuria or hematuria. Prior similar symptoms: Yes Recent Illness/Hospitalization: No PFSH PFSH Medical History Alcohol use Back pain Heartburn Leg cramps Non-smoker Prostate disease Urinary retention Home Medications tamsulosin 0.4 mg capsule 0.4 mg PO QHS 10/22/19 [History Last Taken Unknown] oxycodone 5 mg tablet 5 - 10 mg PO Q6H PRN pain 5 days #15 tabs 07/29/22 [Rx Last Taken Unknown] Allergy/AdvReac Type Severity Reaction Status Date / Time No Known Allergies Allergy Verified 07/29/22 06:18 Family History Mother Heart disease Hypertension Breast cancer Father CHF (congestive heart failure) Sister Hypertension Parkinsons disease Surgical History History of colonoscopy (~10/2019) Hx of basal cell carcinoma excision Hx of squamous cell carcinoma excision No pertinent past surgical history Social History Smoking Status: Never smoker ROS ROS ED ROS Narrative Urinary frequency. Illness. Review of Systems ROS Unobtainable: Denies due to encephalopathy Constitutional Constitutional ED: Denies chills or fever(s) Eyes Eyes: Denies blurry vision ENT ENT ED: Denies ear pain Cardiovascular Cardiovascular: Denies chest pain or palpitations Respiratory/Chest Respiratory/Chest: Denies cough Gastrointestinal Gastrointestinal: Reports abdominal pain; Denies constipation, diarrhea, melena, nausea or vomiting Genitourinary Genitourinary ED: Reports urinary frequency; Denies dysuria or hematuria Musculoskeletal Musculoskeletal: Denies arthralgias Integumentary Denies abscess Neurologic Neurologic: Denies headache(s) Psychiatric Psychiatric: Denies anxiety Endocrine Endocrinology: Denies polydipsia Hematologic/Lymphatic Hematologic/Lymphatic: Denies easy bleeding Allergic/Immunologic Allergic/Immunologic ED: Denies mouth swelling or tongue swelling EXAM Physical Exam Narrative Exam Narrative: Appearance is 7-year-old male. Vital signs stable afebrile. I am seeing after the nurse did a bladder scan which is greater than 999. When they put in a Velez catheter leak at 1300 cc of clear yellow urine out. It does not look infected. There is no gross hematuria. HEENT exam normal. Lungs clear. Heart regular rhythm. Abdomen soft. Well-healing laparoscopic incision sites. Circumcised male. Nontender. Velez catheter in place. Moving all 4 extre mities. Nontender no edema. Const Vital Signs: 07/29/22 17:32 Temperature 97.9 F Temperature Source Temporal Pulse Rate 100 Respiratory Rate 15 Blood Pressure 176/99 H Blood Pressure Mean 124 Pulse Ox 99 Oxygen Delivery Method Room Air Positive well nourished and well developed; Negative for obese, cachectic, contractures or unkempt General Appearance ED: well developed and NAD; Negative for unkempt, cachectic, contractures or pallor Nutritional Appearance: Negative for cachectic or obese HEENT Reports moist mucous membranes; Denies dry mucous membranes normocephalic and atraumatic; Negative for trauma or tenderness Mouth ED: No dry mucous membranes Mouth: No dry mucous membranes Eyes PERRL and EOMs intact bilaterally General Eye ED: Negative for pale conjunctiva or scleral icterus Neck no lymphadenopathy, supple and no JVD General: Negative for tenderness Resp normal respiratory effort and clear to auscultation bilaterally Effort and Inspection: Negative for retractions Auscultation: Negative for rales, rhonchi or wheezes Cardio regular rate, regular rhythm, S1 normal heart sound, S2 normal heart sound and no murmurs Rate: Negative for bradycardia or tachycardic GI non-distended and no masses; Negative for non-tender GI Narrative: After the Velez catheter was placed. Laparoscopic incision sites dry and clean. Inspection: Negative for abdominal distention Auscultation: normoactive bowel sounds Palpation: soft no CVA tenderness Back/Spine no CVA tenderness Neuro oriented x3, CN's II-XII intact bilaterally, moves all extremities and no focal motor deficits Sensorium / Orientation: alert, oriented to person, oriented to place and oriented to time; Negative for orientation impaired, confused, lethargic or stuporous Motor Exam: strength 5/5 throughout Psych mental status grossly normal Appearance: Negative for unkempt Attitude: No agitated Mood & Affect: Negative for depressed, anxious or tearful Thought Process: normal thought process Thought Content: normal thought content Skin General Skin Exam: Negative for jaundice or pallor Lesions: no lesions Rashes: no rashes MDM MDM MDM Narrative Medical decision making narrative: Patient with a history of enlarged prostate. Urinary retention post operative today after hernia repair surgery. We placed a Velez catheter. Got 1300 cc of clear urine out. Velez catheter remain in place. He will follow-up with his urologist Dr. Nestor Mancilla. Discharge Plan Triage Chief Complaint: Complaint ED Provider: Raul Tatum Dx/Rx/DC Orders Clinical Impression: Acute urinary retention, Family history of BPH, H/O hernia repair Instructions: ED Velez Catheter, Care, ED Urinary Retention, Male Prescriptions: No Action tamsulosin 0.4 MG capsule 0.4 mg PO QHS oxycodone 5 mg tablet 5 - 10 mg PO Q6H PRN (Reason: pain) 5 Days Qty: 15 0RF Primary Care Provider: Joann Curran Referrals: Bradly Mancilla MD [Med Staff - Active Staff] - As soon as possible Joann Curran DO [Primary Care Provider] - Activity Restrictions/Additional Instructions: Call and follow-up with your urologist to be seen as soon as possible. Velez catheter remain in place until that time. Disposition Disposition: Home, Self Care
== END 2022-07-29 19:17 | disposition home or self-care (01) ==
LOC: ED 19:01
PROVIDERS: Emergency Provider Emergency Medicine; PCP Family Medicine; Visit Provider Emergency Medicine
DX: R33.9 Retention of urine, unspecified (principal)
CPT/HCPCS: 99283; 51702

== ENCOUNTER → 2022-12-20 | Outpatient (CLI) | payer MEDICARE, OTHER, SELFPAY ==
[2022-12-21 12:09] LABS: PSA, Free 0.93 ng/mL; PSA, Free % 15.3 % (.)
== END | disposition home or self-care (01) ==
LOC: LAB 09:04
PROVIDERS: PCP Family Medicine; Referring Provider Urology; Visit Provider Urology
DX: R97.20 Elevated prostate specific antigen [PSA] (principal)
CPT/HCPCS: 36415; 84153; 84154

== ENCOUNTER → 2023-06-01 | Outpatient (CLI) | payer MEDICARE, OTHER, SELFPAY ==
[2023-06-01 13:05] LABS: AST(SGOT) 20 U/L (15-37); Alanine Aminotransfer ALT/SGPT 27 U/L (16-61); Albumin, Serum 3.6 g/dL (3.2-5.0); Alkaline Phosphatase 105 U/L (45-117); Anion Gap 4 (5-15); BUN 24 mg/dL (7-18); BUN/Creat Ratio 27.4 RATIO (10-20); Chloride 106 mmol/L (98-107); Cholesterol 159 mg/dL (200); Creatinine, Serum 0.88 mg/dL (0.70-1.30); EST Glomerular Filtration Rate 92 mL/min (>60); Est Glom Filt Rate - Afr Amer 111 mL/min (>60); Globulin 3.5 g/dL (2.2-4.2); Glucose 93 mg/dL (74-106); High Density Lipoprotein 36 mg/dL; Potassium 4.1 mmol/L (3.5-5.1); Protein, Total 7.1 g/dL (6.4-8.2); Sodium Level 137 mmol/L (136-145); Triglycerides 144 mg/dL; Very Low Density Lipoprotein 29 mg/dL (5-40)
== END | disposition home or self-care (01) ==
LOC: MFPLAB 10:49
PROVIDERS: PCP Family Medicine; Visit Provider Family Medicine
DX: E78.00 Pure hypercholesterolemia, unspecified (principal)
CPT/HCPCS: 36415; 80053; 80061

== ENCOUNTER → 2023-12-22 | Outpatient (CLI) | payer MEDICARE, OTHER, SELFPAY | END | disposition home or self-care (01) | PROVIDERS: PCP Family Medicine; Referring Provider Urology; Visit Provider Urology | DX: R97.20 Elevated prostate specific antigen [PSA] (principal) | CPT/HCPCS: 36415; 84153 ==

== ENCOUNTER → 2024-01-03 | Outpatient (CLI) | payer MEDICARE, OTHER, SELFPAY ==
--- NOTE | 2024-01-03 08:11 | MRI_ITS ---
STUDY: MR PROSTATE GLAND/ PELVIS WITH T WITHOUT CONTRAST REASON FOR EXAM: Male, 68 years old. ELEVATED PSA -- PSA 8.40 TECHNIQUE: Standardized fat and water weighted pulse sequences were obtained in all 3 orthogonal planes, pre-and post contrast administration. IV 18cc clariscan was administered for the contrast portion of the examination. COMPARISON: None. FINDINGS: Prostate gland volume/size: Mildly enlarged at 6.18 x 4.92 x 5.98 cm. Anterior fibromuscular stroma: Normal Peripheral zone: Heterogeneous on the right with ill-defined intermediate to low signal fibrotic opacities. Several small cysts are present in the anterior aspect of the right peripheral zone. Mildly decreased signal throughout the parenchyma on the left. Central zone: Diffusely heterogeneous and nodular. There are no focal diffusion weighted signal abnormalities Transitional zone: Diffusely heterogeneous and nodular. Mild to moderate diffuse enhancement of the nodular parenchyma. No focally enhancing mass or nodule is seen on the current study. Prostate capsule: Intact Seminal vesicles: Normal Pelvic sidewall lymphadenopathy: None present Bony structures: No lytic or blastic lesions or bone marrow edema or abnormal enhancement is present. Mild diffuse thickening and trabeculation of the bladder wall. Herniation of the apex of the prostate gland into the base of the bladder. No visualized bladder masses. Normal visualized small intestine. There are multiple colonic diverticula of the sigmoid colon consistent with chronic diverticulosis. There is no pelvic fluid. There is no pelvic mass lesion or lymphadenopathy. There are diffuse degenerative changes of the visualized lumbar spine. Normal abdominal wall. MRI/Pelvis W/WO Contrast IMPRESSION: 1. Peripheral zone: Heterogeneous on the right with ill-defined intermediate to low signal fibrotic opacities. Several small cysts are present in the anterior aspect of the right peripheral zone. Mildly decreased signal throughout the parenchyma on the left. 2. Central zone: Diffusely heterogeneous and nodular. There are no focal diffusion weighted signal abnormalities 3. Transitional zone: Diffusely heterogeneous and nodular. Mild to moderate diffuse enhancement of the nodular parenchyma. No focally enhancing mass or nodule is seen on the current study. 4. Findings are consistent with prostatitis/prostatic hyperplasia. If PSA increases her symptoms remain of concern targeted biopsy of the prostate parenchyma should be performed with definitive pathologic evaluation. 5. PI-RADS 3: intermediate (the presence of clinically significant cancer is equivocal) Reference information: Normal prostate tissue Benign prostatic hypertrophy cancer/tumor - low signal peripheral , transitional, and central zones malignancy appears as bright on DWI and low signal on ADC map Prostate imaging-reporting and data system (PI-RADS) PI-RADS 1: very low (clinically significant cancer is highly unlikely to be present) PI-RADS 2: low (clinically significant cancer is unlikely to be present) PI-RADS 3: intermediate (the presence of clinically significant cancer is equivocal) PI-RADS 4: high (clinically significant cancer is likely to be present) PI-RADS 5: very high (clinically significant cancer is highly likely to be present) PI-RADS X: component of exam technically inadequate or not performed Prostate malignancy distribution: Peripheral zone: 70-80% Transitional zone: 10-20% Central zone: 5% or less Electronically Signed: Kelechi Gannon MD at 14:14 EDT ,
[2024-01-03 08:35] LABS: CREATININE FINGERSTICK < 1.0 mg/dL (0.70-1.30); EGFR FINGERSTICK > 60.0000 mL/min (>60)
== END | disposition home or self-care (01) ==
LOC: MRI 07:56
PROVIDERS: PCP Family Medicine; Referring Provider Urology; Visit Provider Urology
DX: R97.20 Elevated prostate specific antigen [PSA] (principal)
CPT/HCPCS: 72197; A9575

== ENCOUNTER → 2024-06-20 | Outpatient (CLI) | payer MEDICARE, OTHER, SELFPAY ==
[2024-06-20 12:14] LABS: Absolute Lymphocyte Count 1.64 X10^3/uL (0.83-4.51); Absolute Neutrophil Count 2.9 X10^3/uL (2.0-7.7); Basophil# 0.05 X10^3/uL; Eosinophil# 0.06 X10^3/uL; Eosinophils% 1.2 % (0-5); Hematocrit 41.5 % (40-54); Lymphocyte # 1.64 X10^3/ul (0.83-4.51); Lymphocyte % 31.8 % (19-41); Mean Corp Hgb Conc 33.7 g/dL (32-36); Mean Corpuscular Hgb 30.2 pg (27.0-32.0); Mean Corpuscular Volume 89.4 fL (80-94); Mean Platelet Vol. 9.4 fl (6.2-12.0); Monocyte# 0.46 X10^3/uL; Monocyte% 8.9 % (0-10); NRBC Flagged by Analyzer 0 % (0-5); Neutrophil # 2.92 X10^3/uL (2.7-7.7); Neutrophil % 56.7 % (47-70); Platelet Count 218 K/mm3 (150-450); RBC Distribution Width SD 45.9 fl (35.1-43.9); Red Blood Count 4.64 M/mm3 (4.6-6.2); White Blood Count 5.2 K/mm3 (4.4-11.0)
[2024-06-20 12:44] LABS: ALB/GLOB Ratio 1.1 RATIO (0.9-2.4); AST(SGOT) 21 U/L (15-37); Alanine Aminotransfer ALT/SGPT 22 U/L (16-61); Albumin, Serum 3.7 g/dL (3.2-5.0); Alkaline Phosphatase 96 U/L (45-117); Anion Gap 6 (5-15); BUN 17 mg/dL (7-18); BUN/Creat Ratio 20.6 RATIO (10-20); Chloride 106 mmol/L (98-107); Cholesterol 167 mg/dL (200); Creatinine, Serum 0.83 mg/dL (0.70-1.30); EST Glomerular Filtration Rate 98 mL/min (>60); Est Glom Filt Rate - Afr Amer 118 mL/min (>60); Globulin 3.3 g/dL (2.2-4.2); Glucose 93 mg/dL (74-106); High Density Lipoprotein 40 mg/dL; Potassium 3.8 mmol/L (3.5-5.1); Sodium Level 137 mmol/L (136-145); Triglycerides 94 mg/dL; Very Low Density Lipoprotein 19 mg/dL (5-40)
== END | disposition home or self-care (01) ==
LOC: MTLAB 09:21
PROVIDERS: PCP Family Medicine; Referring Provider Family Medicine; Visit Provider Family Medicine
DX: Z00.00 Encounter for general adult medical examination without abnormal findings (principal); E78.00 Pure hypercholesterolemia, unspecified
CPT/HCPCS: 36415; 80053; 80061; 85025

== ENCOUNTER → 2024-12-25 | Outpatient (CLI) | payer MEDICARE, OTHER, SELFPAY ==
[2024-12-25 10:07] LABS: PSA,Total- Diagnostic 7.75 ng/mL (0.00-4.00)
== END | disposition home or self-care (01) ==
LOC: LAB 08:22
PROVIDERS: PCP Family Medicine; Referring Provider Urology; Visit Provider Urology
DX: R97.20 Elevated prostate specific antigen [PSA] (principal)
CPT/HCPCS: 36415; 84153

== ENCOUNTER → 2025-06-07 | Outpatient (CLI) | payer MEDICARE, OTHER, SELFPAY ==
[2025-06-07 09:59] LABS: Hematocrit 41.5 % (40-54); Hemoglobin 14.2 g/dL (13.0-16.5); Mean Corp Hgb Conc 34.2 g/dL (32-36); Mean Corpuscular Volume 88.1 fL (80-94); Mean Platelet Vol. 9.1 fl (6.2-12.0); Platelet Count 200 K/mm3 (150-450); RBC Distribution Width CV 14.3 % (11.6-14.6); RBC Distribution Width SD 46.1 fl (35.1-43.9); Red Blood Count 4.71 M/mm3 (4.6-6.2); White Blood Count 3.8 K/mm3 (4.4-11.0)
[2025-06-07 12:31] LABS: AST(SGOT) 22 U/L (<=37); Alanine Aminotransfer ALT/SGPT 16 U/L (<=46); Albumin, Serum 4.3 g/dL (3.4-4.8); Alkaline Phosphatase 92 U/L (40-129); Anion Gap 11 (5-15); BUN 21 mg/dL (4-19); BUN/Creat Ratio 21.4 RATIO (10-20); Calcium,Total 9.3 mg/dL (7.6-11.0); Carbon Dioxide 23.8 mmol/L (21.0-32.0); Chloride 103 mmol/L (98-108); Cholesterol 175 mg/dL (<=200); Globulin 2.8 g/dL (2.2-4.2); Glucose 93 mg/dL (70-99); Low Density Lipoprotein Calc. 122 mg/dL; Potassium 4.0 mmol/L (3.3-5.1); Triglycerides 78 mg/dL; Very Low Density Lipoprotein 16 mg/dL (5-40); cholesterol:hdl ratio screen 4.59
== END | disposition home or self-care (01) ==
LOC: MFPLAB 09:18
PROVIDERS: PCP Family Medicine; Visit Provider Family Medicine
DX: E78.00 Pure hypercholesterolemia, unspecified (principal); Z13.228 Encounter for screening for other metabolic disorders
CPT/HCPCS: 36415; 80053; 80061; 85027